=== PATIENT | female | born 1985 | race Caucasian/White ===

== ENCOUNTER → 2020-11-16 10:33 | Outpatient (BNVA) | payer MEDICARE, SELFPAY | PROVIDERS: Visit Provider Obstetrics & Gynecology | DX: Z30.09 Encounter for other general counseling and advice on contraception (principal) | CPT/HCPCS: Q3014 ==

== ENCOUNTER → 2020-12-07 14:32 | Outpatient (BNVA) | payer OTHER, SELFPAY | PROVIDERS: Visit Provider Obstetrics & Gynecology | DX: Z30.09 Encounter for other general counseling and advice on contraception (principal) | CPT/HCPCS: 99212 ==

== ENCOUNTER 2020-12-08 07:41 | Day surgery (SDC) | payer OTHER, SELFPAY ==
[2020-12-01 12:42] VITALS: BMI 28.9
--- NOTE | 2020-12-07 10:22 | HO.ANESPROP2 ---
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 If so, by whom?: No Advance Directives Information Provided: No Recently lost weight without trying: No Meds Allergies Allergy/AdvReac Type Severity Reaction Status Date / Time No Known Allergies Allergy Verified 12/07/20 14:49 Home Medications Medication Instructions Recorded Confirmed Last Taken Type multivitamin 1 tab PO DAILY 12/01/20 12/01/20 Unknown History Exam Exam Date and Time: December 07, 2020 1022 Height,Weight and Vital Signs: Height 5 ft 9 in Weight 88.904 kg Assessment and Plan Assessment Anesthesia Assessment: Chart Reviewed Documented by User: Emma Lucas 12/08/20 10:18 PMFSH Past Medical History Medical History No significant past medical history Family History Family history of problems with anesthesia: No Surgical History Surgical History No significant past surgical history History of Problems with Anesthesia: No Social History Social History 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 If so, by whom?: No Advance Directives Information Provided: No Recently lost weight without trying: No Meds Allergies Allergy/AdvReac Type Severity Reaction Status Date / Time No Known Allergies Allergy Verified 12/07/20 14:49 Home Medications Medication Instructions Recorded Confirmed Last Taken Type multivitamin 1 tab PO DAILY 12/01/20 12/01/20 Unknown History Exam Height,Weight and Vital Signs: Vital Signs Temp Pulse Resp BP Pulse Ox 12/08/20 08:07 98.4 F 76 18 140/65 H 99 Pertinent Lab Results Pertinent Lab Results: Lab Results 12/08/20 Range/Units 07:53 Urine Test NEGATIVE (NEGATIVE) Airway Mallampati Class: II TM Dist: >3cm Neck ROM: Full Heart: RRR Lungs: CTAB Assessment and Plan Assessment Anesthesia Assessment: Anesthesia Plan Discussed and Chart Reviewed Final Anesthetic Review NPO: Yes ASA Class: I Final Preanesthetic Review: No Changes in Pt Med Stat, Meds/Allgs Chart Reviewed, Consent Obtained/Reviewed and Anes Risks/Benef Reviewed Patient Risk: Low Procedure Risk: Intermediate Assessment/Block/Sedation in SS: Assess/Block/Sedation-SS Anesthetic Plan Anesthetic Plan: GA Disposition: Standard PACU
[2020-12-08 08:07] VITALS: BP 140/65; PULSE 76; RESP 18; TEMP 36.9; O2SAT 99
[2020-12-08 08:08] LABS: UPreg QC Valid YES; Urine Pregnancy NEGATIVE (NEGATIVE)
[2020-12-08] MEDS: Lactated Ringers 1,000 ML 100 ML IVCONT (08:20)
[2020-12-08] MEDS: Acetaminophen 325 MG TABLET 650 MG PO (08:22)
--- NOTE | 2020-12-08 08:50 | MHC.SHP ---
Pre-Procedural Eval Section A The patient is an INPATIENT: No Changes since office visit: No Cold of Flu in the past 2 weeks, No New Medical Problems, No Changes in Medication and No Patient answered all questions The History & Physical has been completed within 30 days and I have reviewed it.: Yes Section B Chief Complaint: Unwanted Fertility Allergies: Allergies Allergy/AdvReac Type Severity Reaction Status Date / Time No Known Allergies Allergy Verified 12/07/20 14:49 Plan I have reviewed the history and physical and performed a pertinent physical examination on my patient. No changes have occurred unless specified.
--- NOTE | 2020-12-08 08:57 | P.OP_ITS ---
Operative Note Operative Note Date of Service: 12/08/20 Narrative: Pre-Op Diagnosis: Unwanted Fertility Post-Op Diagnosis: Unwanted Fertility Procedures Performed: Laparoscopic bilateral tubal ligation; Intrauterine Device removal Ms. Edwards is a 35 year old who has completed her family planning and desires a permanent form of sterilization. Surgical Risks: The patient was informed of the risks and benefits of the procedure. Risks included but were not limited to bleeding; infection; injury to the vulva, vagina, or cervix, uterus, bowels, bladder, blood vessels, or nerves. The patient was counseled on the risk of sterilization failure being about 1% on average. The patient was informed that in the event a occurs, the risk of ectopic is increased. The patient expressed understanding of the risks involved, all questions were answered, and the patient consented to the procedure. The patient had valid sterilization consent at the time of the procedure. The patient was taken to the operating room where a time out was performed to confirm correct patient and correct procedure. General anesthesia was established. The patient was then positioned on the operating table in the dorsal lithotomy position with the legs supported using stirrups. All pressure points were padded and a Linnea hugger was placed to maintain control of core body temperature. The patient was then prepped and draped in the usual sterile fashion. A red rubber catheter was inserted and []mL urine obtained. A sponge stick was placed in the vagina for uterine manipulation. Attention was turned to the abdomen where a 5mm vertical infraumbilical incision was made. The 5mm trocar was introduced under direct visualization using the laparoscopy within the sleeve of the trocar. After intra-abdominal placement had been confirmed, the trocar was removed leaving the sleeve in place. The camera was introduced and pneumoperitoneum was established using carbon dioxide. Inspection of the abdominal cavity showed no gross abnormalities and there was no evidence of injury to the bowel, bladder, or vasculature. Attention was turned to the pelvis. The patient was placed into Trendelenburg position. The fallopian tubes and ovaries were visualized bilaterally. There were no abnormalities noted. A small incision was made in the midline approximately 2cm above the pubic symphysis. A 5mm trocar was introduced through this incision under direct visualization with the laparoscope. The fallopian tubes were inspected bilaterally and the fimbriated ends of the fallopian tube were visualized bilaterally. The left fallopian tube and mesosalpinx were grasped with the clip telemarketing sales representative and the clip deployed. Attention was then turned to the contralateral fallopian tube and mesosalpinx which was grasped about 1cm from the cornua with the clip telemarketing sales representative and the clip deployed. The clip was found not to traverse the full diameter of the tube. The clip was removed with gentle traction. A small incision was made on the patient's right, 2cm superior and 2cm medial to the right ASIS. A 5mm trocar was introduced through this incision under direct visualization with the laparoscope. The right tube was grasped with an atraumatic grasper and gentle traction applied. The right fallopian tube and mesosalpinx was then grasped about 1cm from the cornua with the clip telemarketing sales representative and the clip deployed.Successful ligation of both tubes with clips was then visually confirmed. The pneumoperitoneum was then evacuated. The laparoscope was removed and the trocar sleeves were removed. The skin incisions were closed, each with one interrupted 3-0 Vicryl suture and Dermabond was then applied. Good hemostasis was confirmed. The spongestick was then removed from the vagina. A bivalve speculum was placed in the vagina and the cervix visualized with IUD strings visibly extruding from the os. The strings were grasped with a ring forceps and the IUD was removed with gentle traction. The speculum was then removed from the vagina. The patient was transferred to the recovery room in stable condition. All needle, sponge, and instrument counts were noted to be correct x2 at the end of the procedure.
[2020-12-08 10:08] VITALS: BP 149/78; PULSE 83; RESP 16; TEMP 36.4; O2SAT 100
[2020-12-08 10:13] VITALS: BP 132/76; PULSE 83; RESP 16; O2SAT 100
[2020-12-08 10:17] VITALS: BP 120/66; PULSE 81; RESP 17; O2SAT 99
[2020-12-08 10:22] VITALS: BP 119/71; PULSE 70; RESP 17; O2SAT 99
[2020-12-08] MEDS: oxyCODONE HCl Immed Release 5 MG TABLET PO (10:32)
[2020-12-08 10:37] VITALS: BP 127/65; PULSE 73; RESP 17; TEMP 36.3; O2SAT 100
== END 2020-12-08 11:15 | disposition home or self-care (01) ==
LOC: HO.SSS 07:42
PROVIDERS: Nurse Practitioner; PCP Internal Medicine; Visit Provider Obstetrics & Gynecology
PROC: (CPT 58670; principal; 2020-12-08 09:10)
DX: Z30.2 Encounter for sterilization (principal); Z30.432 Encounter for removal of intrauterine contraceptive device
CPT/HCPCS: 58671; 58301; 81025; J1100; J2250; J2405; J3010